=== PATIENT | female | born 1935 | race Hispanic/Latino ===

== ENCOUNTER 2020-08-02 20:03 | Observation (INO) | payer MEDICARE, SELFPAY ==
[2020-08-02 20:52] LABS: #Basophils 0.1 thou/uL (0.0-0.2); #Eosinphils 0.1 thou/uL (0.0-0.7); #Lymphocytes 5.6 thou/uL (1.20-3.40); #Monocytes 0.7 thou/uL (0.11-0.59); %Eosinophils 0.7 % (0.0-10.0); %Lymphocytes 48.8 % (21.0-51.0); %Monocytes 6.2 % (0.0-10.0); %Neutrophils 43.3 % (42.0-75.0); Hemoglobin 13.4 g/dL (12.0-16.0); Mean Corpuscular HGB CONC 33.3 g/dL (32.0-36.0); Mean Corpuscular Hemoglobin 30.9 pg (27.0-31.0); Mean Corpuscular Volume 92.9 fL (78.0-98.0); Mean Platelet Volume 7.6 fL (7.4-10.4); Platelet Count 231 thou/uL (130-400); RBC Distribution Width 12.5 % (11.5-14.5); Red Blood Cell (RBC) Count 4.34 mill/uL (4.20-5.40); White Blood Cell (WBC) Count 11.5 thou/uL (4.8-10.8)
[2020-08-02 21:14] LABS: ALT (SGPT) 17 U/L (8-55); AST (SGOT) 22 U/L (5-34); Alkaline Phosphatase 90 U/L (40-110); Anion Gap 14 mmol/L (10-20); BUN (Urea Nitrogen) 22 mg/dL (9.8-20.1); Bilirubin, Total 0.4 mg/dL (0.2-1.2); CK (CPK) 43 U/L (29-168); Calc. Creatinine Clearance 0 mL/min (70-130); Calcium 9.3 mg/dL (7.8-10.44); Carbon Dioxide 24 mmol/L (23-31); Chloride 106 mmol/L (98-107); Globulin 3.8 g/dL (2.4-3.5); Glucose 116 mg/dL (83-110); Lipase 83 U/L (8-78); Potassium 4.1 mmol/L (3.5-5.1); Protein, Total 7.8 g/dL (5.8-8.1); Sodium 140 mmol/L (136-145)
[2020-08-02] MEDS ORDERED: Aspirin Chewable 81 MG TAB ONE (21:57)
[2020-08-02] MEDS ORDERED: HYDROcodone/Acetaminophen 5/325 mg Tablet PO PRN (22:53)
[2020-08-02] MEDS ORDERED: Nitroglycerin 0.4 MG TAB (25 Tab Bottle) SL PRN (22:53)
[2020-08-02] MEDS ORDERED: Bisacodyl 5 MG TAB PO PRN (22:53)
[2020-08-02] MEDS ORDERED: Acetaminophen 325 MG TAB PO PRN (22:53)
[2020-08-02] MEDS ORDERED: ALPRAZolam 0.5 MG TAB PO PRN (22:58)
[2020-08-02] MEDS ORDERED: Nitroglycerin 2% Ointment 1 INCH/1 GM Packet ONE (23:17)
[2020-08-02] MEDS ORDERED: Aspirin 325 MG TAB PO SCH (23:30)
[2020-08-02 23:49] LABS: Troponin I 0.011 ng/mL (< 0.028)
[2020-08-02 23:56] VITALS: BMI 36.2
[2020-08-03 03:48] LABS: #Basophils 0.1 thou/uL (0.0-0.2); #Eosinphils 0.1 thou/uL (0.0-0.7); #Lymphocytes 3.9 thou/uL (1.20-3.40); #Monocytes 0.6 thou/uL (0.11-0.59); #Neutrophils 5.4 thou/uL (1.40-6.50); %Basophils 1.4 % (0.0-1.0); %Eosinophils 0.6 % (0.0-10.0); %Lymphocytes 38.8 % (21.0-51.0); %Neutrophils 53.3 % (42.0-75.0); Hemoglobin 12.1 g/dL (12.0-16.0); Mean Corpuscular HGB CONC 33.7 g/dL (32.0-36.0); Mean Corpuscular Hemoglobin 31.6 pg (27.0-31.0); Mean Corpuscular Volume 93.5 fL (78.0-98.0); Mean Platelet Volume 7.7 fL (7.4-10.4); Platelet Count 199 thou/uL (130-400); RBC Distribution Width 12.4 % (11.5-14.5); Red Blood Cell (RBC) Count 3.82 mill/uL (4.20-5.40); White Blood Cell (WBC) Count 10.2 thou/uL (4.8-10.8)
[2020-08-03 04:13] LABS: Anion Gap 13 mmol/L (10-20); BUN (Urea Nitrogen) 20 mg/dL (9.8-20.1); Calc. Creatinine Clearance 51 mL/min (70-130); Calcium 8.6 mg/dL (7.8-10.44); Carbon Dioxide 23 mmol/L (23-31); Cardiac Risk 7.7 (Less than 4.5); Chloride 107 mmol/L (98-107); Cholesterol 245 mg/dl (< 200 Desired); Glucose 131 mg/dL (83-110); HDL Cholesterol 32 mg/dL (>60 Neg Risk); LDL Cholesterol, Calculated 179 mg/dL; Potassium 4.5 mmol/L (3.5-5.1); Sodium 138 mmol/L (136-145); Triglycerides 170 mg/dL (Less than 150)
[2020-08-03 04:20] LABS: Troponin I Less than 0.010 ng/mL (< 0.028)
[2020-08-03] MEDS: Famotidine 20 MG TAB PO SCH (07:59)
[2020-08-03] MEDS: Lisinopril 10 MG TAB PO SCH ×3 (07:59→19:55)
[2020-08-03] MEDS: Enoxaparin Sodium 30 MG/0.3 ML SYRINGE SC SCH (07:59)
[2020-08-03] MEDS ORDERED: Aspirin Chewable 81 MG TAB PO SCH (09:00)
[2020-08-03] MEDS ORDERED: Atorvastatin Calcium 20 MG TAB PO SCH (21:00)
[2020-08-04] MEDS: Famotidine 20 MG TAB PO SCH (07:30)
[2020-08-04] MEDS: Enoxaparin Sodium 30 MG/0.3 ML SYRINGE SC SCH (07:32)
[2020-08-04] MEDS: Lisinopril 10 MG TAB PO SCH ×2 (07:35)
[2020-08-04] MEDS ORDERED: ALPRAZolam 0.25 MG TAB PO SCH (09:00)
[2020-08-04] MEDS ORDERED: Aspirin 325 MG TAB PO SCH (09:00)
[2020-08-04] MEDS ORDERED: ADENOSINE 60 MG/20 ML VIAL ONE (11:14)
[2020-08-04 12:12] VITALS: BP 135/69; TEMP 97.7
== END 2020-08-04 15:36 | disposition home or self-care (01) ==
LOC: ERS 20:03 → 2SW 22:14
PROVIDERS: ADMIT Internal Medicine; ATTEND Internal Medicine
DX: R07.89 Other chest pain (principal); I10 Essential (primary) hypertension; E78.5 Hyperlipidemia, unspecified; Z79.899 Other long term (current) drug therapy
CPT/HCPCS: 71045; 78452; 80048; 80061; 82550; 83690; 83880; 84484 ×3; 85025; 93005; 93017; 94760 ×2; 99285; A9500; 36415; 80053; 84443; 96372; G0378; J0153; J1650